=== PATIENT | female | born 1950 | race Caucasian/White ===

== ENCOUNTER 2022-11-18 00:58 | Inpatient (IN) | payer MEDICARE, OTHER ==
[2022-11-18] MEDS ORDERED: LORazepam 0.5 MG TAB PO STA (01:39)
[2022-11-18] MEDS ORDERED: HYDROmorphone 1 MG/ML 1 ML SYRINGE IM STA (01:39)
[2022-11-18] MEDS ORDERED: NALOXONE 0.4 MG/ML 1 ML VIAL IV PRN (03:41)
[2022-11-18 04:30] LABS: Basophils % (A) 0 %; Eosinophils # (A) 0.1 k/uL (0-0.7); Eosinophils % (A) 1 %; HCT 38.6 % (34.0-46.0); HGB 12.7 gm/dL (11.4-16.0); Lymphocytes # (A) 0.6 k/uL (1.0-4.8); Lymphocytes % (A) 7 %; MCH 31.2 pg (25.0-35.0); MCHC 32.8 g/dL (31.0-37.0); Mean Platelet Volume 7.5; Monocytes # (A) 0.4 k/uL (0-1.0); Monocytes % (A) 4 %; Neutrophils # (A) 7.9 k/uL (1.3-7.7); Neutrophils % (A) 87 %; Platelet Count 184 k/uL (150-450); RBC 4.06 m/uL (3.80-5.40); RDW 14.2 % (11.5-15.5)
[2022-11-18] MEDS: KETOROLAC 15 MG/ML 1 ML VIAL IVP PRN ×2 (04:37→21:34)
--- NOTE | 2022-11-18 04:39 | CT ---
EXAM: CT Head Without Intravenous Contrast CLINICAL HISTORY: ITS.REASON CT Reason: fall TECHNIQUE: Axial computed tomography images of the head/brain without intravenous contrast. CTDI is 45.2 mGy and DLP is 1008 mGy-cm. This CT exam was performed using one or more of the following dose reduction techniques: automated exposure control, adjustment of the mA and/or kV according to patient size, and/or use of iterative reconstruction technique. COMPARISON: No relevant prior studies available. FINDINGS: Brain: No hemorrhage, extra-axial fluid collection, mass effect, or edema. Ventricles: Unremarkable. Bones/joints: Unremarkable. No fracture. Soft tissues: Unremarkable. Sinuses: No acute sinusitis. Mastoid air cells: Unremarkable as visualized. IMPRESSION: 1. No acute intracranial abnormality. EXAM: CT Cervical Spine Without Intravenous Contrast CLINICAL HISTORY: ITS.REASON CT Reason: fall TECHNIQUE: Axial computed tomography images of the cervical spine without intravenous contrast. CTDI is 9.3 mGy and DLP is 260.4 mGy-cm. This CT exam was performed using one or more of the following dose reduction techniques: automated exposure control, adjustment of the mA and/or kV according to patient size, and/or use of iterative reconstruction technique. COMPARISON: No relevant prior studies available. FINDINGS: Vertebrae: No acute fracture. Severe degenerative changes. Anterolisthesis at C2-3. Retrolisthesis at C4-5. Degenerative changes most pronounced at C4-5 where there is severe spinal canal stenosis. Multilevel high-grade foraminal stenosis. Soft tissues: Unremarkable. IMPRESSION: 1. No acute fracture. 2. Severe spinal canal stenosis at C4-5.
--- NOTE | 2022-11-18 04:40 | XR ---
EXAM: XR Chest, 1 View CLINICAL HISTORY: ITS.REASON XR Reason: Fx TECHNIQUE: Frontal view of the chest. COMPARISON: No relevant prior studies available. FINDINGS: Lungs: No consolidation. No overt edema. Pleural space: No pleural effusion. No pneumothorax. Heart: Unremarkable. No cardiomegaly. IMPRESSION: No acute cardiopulmonary abnormality.
[2022-11-18 04:42] LABS: ALT 11 U/L (4-34); AST 24 U/L (14-36); African American GFR (CKD) >90 (>60 ml/min/1.73 sqM); Albumin 3.8 g/dL (3.5-5.0); Alkaline Phosphatase 74 U/L (38-126); Anion Gap 4 mmol/L; Blood Urea Nitrogen 20 mg/dL (7-17); Calcium 8.7 mg/dL (8.4-10.2); Carbon Dioxide 26 mmol/L (22-30); Chloride 106 mmol/L (98-107); Glucose 98 mg/dL (74-99); Non-African American GFR(CKD) >90 (>60 ml/min/1.73 sqM); Partial Thromboplastin Time 24.3 sec (22.0-30.0); Potassium 4.3 mmol/L (3.5-5.1); Prothrombin Time 10.2 sec (9.0-12.0); Sodium 136 mmol/L (137-145); Total Bilirubin 0.4 mg/dL (0.2-1.3); Total Protein 6.3 g/dL (6.3-8.2)
--- NOTE | 2022-11-18 04:42 | XR ---
EXAM: XR Left Hip With Pelvis When Performed, 2 or 3 Views CLINICAL HISTORY: ITS.REASON XR Reason: fall TECHNIQUE: Two or three views of the left hip with pelvis when performed. COMPARISON: No relevant prior studies available. FINDINGS: Bones/joints: Subcapital femoral neck fracture on the left. IMPRESSION: Subcapital femoral neck fracture on the left.
--- NOTE | 2022-11-18 04:59 | ED ---
Lower Extremity Injury HPI - General Chief Complaint: Fall Stated Complaint: Fall Time Seen by Provider: 11/18/22 01:33 Source: patient, EMS Mode of arrival: EMS Limitations: no limitations - History of Present Illness Initial Comments: Patient is a 72-year-old female presenting with chief complaint of left hip pain. Patient had a fall from standing at home today, states she was trying to move a boot on the floor and lost her balance. She fell onto her left hip. She denies any head injury, loss of consciousness, use of blood thinners. No si gnificant past medical history. No headache, vision or hearing changes, numbness, tingling, weakness, nausea, vomiting, dizziness, chest pain, difficulty breathing. - Related Data Home Medications Medication Instructions Recorded Confirmed No Known Home Medications 12/13/15 12/13/15 Previous Rx's Medication Instructions Recorded Ibuprofen [Motrin] 600 mg PO Q6HR PRN #30 tab 12/13/15 Allergies Allergy/AdvReac Type Severity Reaction Status Date / Time No Known Allergies Allergy Verified 11/18/22 01:04 Review of Systems ROS Statement: Those systems with pertinent positive or pertinent negative responses have been documented in the HPI. ROS Other: All systems not noted in ROS Statement are negative. Past Medical History Past Medical History: No Reported History History of Any Multi-Drug Resistant Organisms: None Reported Past Surgical History: No Surgical Hx Reported Past Psychological History: No Psychological Hx Reported Smoking Status: Current every day smoker Past Alcohol Use History: Rare Past Drug Use History: None Reported General Exam Limitations: no limitations General appearance: alert, in no apparent distress Head exam: Present: atraumatic, normocephalic, normal inspection Eye exam: Present: normal appearance, PERRL, EOMI. Absent: scleral icterus, periorbital swelling, periorbital tenderness Neck exam: Present: normal inspection, full ROM Respiratory exam: Present: normal lung sounds bilaterally. Absent: respiratory distress, wheezes, rales, rhonchi, stridor Cardiovascular Exam: Present: regular rate, normal rhythm, normal heart sounds. Absent: systolic murmur, diastolic murmur, rubs, gallop, clicks Extremities exam: Present: normal capillary refill Left Hip exam: Present: tenderness, external rotation, shortening. Absent: normal i nspection, full ROM Neurological exam: Present: alert, oriented X3, CN II-XII intact Psychiatric exam: Present: normal affect, normal mood Skin exam: Present: warm, dry, intact, normal color. Absent: rash Course Vital Signs 11/18/22 11/18/22 00:59 04:39 Temperature 97.3 F L Pulse Rate 67 65 Respiratory 18 16 Rate Blood Pressure 177/92 120/76 O2 Sat by Pulse 94 L 92 L Oximetry Medical Decision Making - Medical Decision Making Was pt. sent in by a medical professional or institution (, PA, GRIDCAP MACHINE OPERATOR, urgent care, hospital, or correction...) When possible be specific @ -No Did you speak to anyone other than the patient for history (EMS, parent, family, police, friend...)? What history was obtained from this source @ -No Did you review nursing and triage notes (agree or disagree)? Why? @ -I reviewed and agree with nursing and triage notes Were old charts reviewed (outside hosp., previous admission, EMS record, old EKG, old radiological studies, urgent care reports/EKG's, correction records)? Report findings @ -No old charts were reviewed Differential Diagnosis (chest pain, altered mental status, abdominal pain women, abdominal pain men, vaginal bleeding, weakness, fever, dyspnea, syncope, headache, dizziness, GI bleed, back pain, seizure, CVA, palpatations, mental health, musculoskeletal)? @ -Differential Musculoskeletal Muscular strain, contusion, ligament sprain, fracture, arthritis, septic arthrit is, bursitis, cellulitis, muscle spasm, nerve compression, DVT, arterial occlusion, herpes zoster, electrolyte abnormality, tumor.... This is not meant to be in all inclusive list EKG interpreted by me (3pts min.). @ -As above X-rays interpreted by me (1pt min.). @ -X-ray shows subcapital femoral neck fracture on the left. Chest x-ray shows no acute process CT interpreted by me (1pt min.). @ -CT shows no acute intracranial process or cervical spine fracture U/S interpreted by me (1pt. min.). @ -None done What testing was considered but not performed or refused? (CT, X-rays, U/S, labs)? Why? @ -None What meds were considered but not given or refused? Why? @ -None Did you discuss the management of the patient with other professionals (professionals i.e. , SUSAN, GRIDCAP MACHINE OPERATOR, lab, RT, psych nurse, clinical social work therapist, cement rubber, teacher, armed custom protection officer, lead case manager)? Give summary @ -I spoke with Dr. Houser orthopedist front of house manager who accepted admission of this patient Was smoking cessation discussed for >3mins.? @ -No Was critical care preformed (if so, how long)? @ -No Were there social determinants of health that impacted care today? How? (Home lessness, low income, unemployed, alcoholism, drug addiction, transportation, low edu. Level, literacy, decrease access to med. care, senior living, rehab)? @ -No Was there de-escalation of care discussed even if they declined (Discuss DNR or withdrawal of care, Hospice)? DNR status @ -No What co-morbidities impacted this encounter? (DM, HTN, Smoking, COPD, CAD, Cancer, CVA, ARF, Chemo, Hep., AIDS, mental health diagnosis, sleep apnea, morbid obesity)? @ -None Was patient admitted / discharged? Hospital course, mention meds given and route, prescriptions, significant lab abnormalities, going to OR and other pertinent info. @ -Admitted. 72-year-old female presenting for evaluation after a fall at home from standing. She is complaining of left hip pain. Negative CT of the brain and cervical spine. X-ray shows subcapital femoral neck fracture. I spoke with Dr. Houser who accepted admission. Preop lab work was ordered an EKG was ordered. Patient was placed nothing by mouth and consult was placed to medicine for surgical clearance. Patient is agreeable with this plan. I discussed this case with my attending Dr. Su Undiagnosed new problem with uncertain prognosis? @ -No Drug Therapy requiring intensive monitoring for toxicity (Heparin, Nitro, Insulin, Cardizem)? @ -No Were any procedures done? @ -No Diagnosis/symptom? @ -Hip fracture Acute, or Chronic, or Acute on Chronic? @ -Acute Uncomplicated (without systemic symptoms) or Complicated (systemic symptoms)? @ -Complicated Side effects of treatment? @ -No Exacerbation, Progression, or Severe Exacerbation? @ -No Poses a threat to life or bodily function? How? (Chest pain, USA, AR, pneumonia, PE, COPD, DKA, ARF, appy, cholecystitis, CVA, Diverticulitis, Homicidal, Suici viviane, threat to staff... and all critical care pts) @ -No - Lab Data Result diagrams: 11/18/22 04:12 11/18/22 04:12 Disposition Clinical Impression: Hip fracture Disposition: ADMITTED IP TO THIS HOSP Condition: Serious
[2022-11-18] MEDS: SODIUM CHLORIDE 0.9% 1,000 ML IV SCH ×2 (05:10→21:34)
[2022-11-18] MEDS: HYDROmorphone 1 MG/ML 1 ML SYRINGE IVP PRN ×2 (07:59→17:25)
--- NOTE | 2022-11-18 08:12 | P.HPOR ---
History of Present Illness H&P Date: 11/18/22 Chief Complaint: Left hip pain Patient is a very pleasant 72-year-old female who is seen and examined at bedside in the emergency room. Apparently patient had a fall overnight last night when she is trying to move some boots off the ground and she tripped and fell onto her left side. She had sudden acute pain at her left hip was unable to get up. She denies loss consciousness or headache. Denies any chest pain or shortness breath. Denies any problems the left hip in the past. She normally is a home ambulator without assistance but occasionally uses a cane. She did not have any other injuries that she knows of. She does not have any problems of her lower extremities in the past. She does not drive. She was at home with her grandsons and her son-in-law She says that she has not been to the doctor in decades. She does not have a regular primary care physician. She does not take any medicines at home. Review of Systems As stated per HPI. Denies any headaches loss of consciousness. Denies chest pain shortness breath. She says she has occasional asthma be as she is a chronic smoker. She denies any abdominal pain nausea or vomiting or diarrhea her changes in bowel bladder function. Denies any numbness or leg. She has significant pain at her leg whenever she tried to move. Past Medical History Past Medical History: No Reported History, Asthma Additional Past Medical History / Comment(s): She says she is a chronic smoker and has asthma due to this. She occasionally uses a cane for ambulation History of Any Multi-Drug Resistant Organisms: None Reported Past Surgical History: No Surgical Hx Reported Past Psychological History: No Psychological Hx Reported Smoking Status: Current every day smoker Past Alcohol Use History: Rare Past Drug Use History: None Reported Medications and Allergies Home Medications Medication Instructions Recorded Confirmed Type Ibuprofen [Motrin] 600 mg PO Q6HR PRN #30 tab 12/13/15 Rx No Known Home Medications 12/13/15 12/13/15 History Allergies Allergy/AdvReac Type Severity Reaction Status Date / Time No Known Allergies Allergy Verified 11/18/22 01:04 Physical Examination Osteopathic Statement: *. No significant issues noted on an osteopathic structural exam other than those noted in the History and Physical/Consult. - Hip left Gait: other (The patient is laying in bed unable to get up has pain with any motion of the left leg. Her leg is shortened dextrorotated on left side. Size nontender. She has pain with motion and palpation around her left hip. She has dorsal flexion plantarflexion and EHL intact ankle foot and toes.) Tenderness with palpation: lateral Pain with motion: external rotation and hip flexion (She has pain with any motion at the left hip. Her abdomen soft nontender. Chest is good excursion deep inspiration and expiration. Next nontender to palpation has good range of motion. Upper extremities have full active and passive range of motion) Results - Labs Labs: Abnormal Lab Results - Last 24 Hours (Table) 11/18/22 11/18/22 Range/Units 04:12 04:12 Neutrophils # 7.9 H (1.3-7.7) k/uL Lymphocytes # 0.6 L (1.0-4.8) k/uL Sodium 136 L (137-145) mmol/L BUN 20 H (7-17) mg/dL Creatinine 0.51 L (0.52-1.04) mg/dL H & H 11/18/22 Range/Units 04:12 Hgb 12.7 (11.4-16.0) gm/dL Hct 38.6 (34.0-46.0) % Coagulation 11/18/22 Range/Units 04:12 INR 1.0 (<1.2) Result Diagrams: 11/18/22 04:12 11/18/22 04:12 - Diagnostic results Hip x-ray: report reviewed, image reviewed (X-rays the pelvis and left hip show a left femoral neck fracture with displacement.) CT scan - cervical: other (Image of the head does not show any evidence of acute process) Assessment and Plan Assessment: Acute traumatic left hip femoral neck fracture with displacement due to a fall Inability to ambulate due to left hip fracture Chronic smoker Plan: Acute traumatic left hip femoral neck fracture with displacement due to a fall Inability to ambulate due to left hip fracture Chronic smoker The patient has a new fracture at her left hip due to her fall overnight last night. I discussed the injury with her and how it relates with her overall ambulatory status and independence. She understands that this is very serious fracture and knee severely inhibit her ability to be independent and ambulate in the future. We feel that the best chance she has of regaining her motion mobility and independence is to proceed with surgical intervention for left hip hemiarthroplasty. Surgical intervention with this would allow her to start to mobilize and ambulate as soon as possible. We discussed range of options ranging from conservative to surgical and the patient was interested in proceeding with surgery. I discussed the risk of occasions alternatives benefits of surgery including but not limited to the risk of bleeding risk infection was used for further surgery risk decreased loss of motion loss function malunion nonunion hardware failure dislocation as well as the fact that surgery may not alleviate her symptoms was explained. Patient elected to proceed with surgical intervention will sign informed consent. We will have the patient nothing by mouth and plan for possible surgical intervention later this afternoon if she is able to be cleared with medicine. Patient does not have a primary care physician that she is seen in the past several decades and we will get her establish that she could have potential clearance. We'll do appropriate preoperative workup and lab work and imaging. Thus far the patient's imaging of her head and chest have been unremarkable. She will remain nothing by mouth and lab for possible surgery later today for left hip hemiarthroplasty
[2022-11-18 12:35] LABS: Glucose,Whole Blood 91 mg/dL (70-110)
--- NOTE | 2022-11-18 15:52 | HP ---
HISTORY AND PHYSICAL CHIEF COMPLAINT: Fall with pain in left hip. HISTORY OF PRESENT ILLNESS: First known admission for this 72-year-old white female. She apparently got up in the middle of the night, tripped and landed on her left hip. She has a left hip fracture. REVIEW OF SYSTEMS: She denies any confusion, seizures, blackouts, focal neurologic deficits, problems with vision or hearing, chest pain, shortness of breath, cough, heart disease, abdominal pain, nausea, vomiting, diarrhea, melena, hematochezia, jaundice, hepatitis, hematuria, frequency, urgency, nocturia, incontinence, renal failure, diabetes, etc. Past medical history, family history, personal and social histories are all otherwise unremarkable and noncontributory. MEDICATIONS: She is not on any medications. ALLERGIES: She is not allergic to any. PHYSICAL EXAMINATION: VITAL SIGNS: Blood pressure 174/104. Pulse is 81, respirations of 22, and she is afebrile. GENERAL: She appeared to be slender, awake and alert and in no acute distress. SKIN: Color was normal. Skin was dry. HEAD, EARS, EYES, NOSE, MOUTH AND THROAT: Normal. NECK: Veins are not distended. CHEST: Clear. CARDIAC: Demonstrates sinus rhythm. ABDOMEN: Soft and nontender without any visceromegaly or masses. Bowel sounds are present. EXTREMITIES: Normal except for external rotation of the left hip. NEUROLOGIC: She is intact. IMPRESSION: She is admitted to the hospital with diagnosis of fracture of the left hip. PLAN: 1. Bedrest. 2. Analgesics. 3. IV fluids. 4. Orthopedic evaluation and ORIF. DANIELA / IJN: [id number] /
[2022-11-18] MEDS: amLODIPine 5 MG TAB PO SCH (17:27)
[2022-11-19] MEDS: HYDROmorphone 1 MG/ML 1 ML SYRINGE IVP PRN ×3 (00:07→13:55)
[2022-11-19] MEDS: KETOROLAC 15 MG/ML 1 ML VIAL IVP PRN ×2 (05:58→12:21)
[2022-11-19] MEDS: amLODIPine 5 MG TAB PO SCH (08:16)
--- NOTE | 2022-11-19 08:39 | P.PN ---
Progress Note - Text Progress Note Date: 11/19/22 Orthopedics: History of present illness: Patient is a very pleasant 72-year-old female who is seen and examined the bedside with her family present. Patient is known to have sustained a fall resulting in a acute traumatic left hip femoral neck fracture with displacement. She has been unable to ambulate since that time. She was cleared for surgical intervention yesterday but was unable to proceed for due to scheduling. Patient is currently nothing by mouth in anticipation for surgical intervention today. She was cleared for surgery by medicine. She is resting comfortably. She states her pain is controlled while at rest. She will continue be seen and examined by medicine. Physical exam: Patient is awake, alert, and oriented 3 Vital signs stable Good chest excursion with deep inspiration and expiration Left lower extremity is shortened and externally rotated Pain with palpation of the left hip Significant pain with internal and external rotation of the left hip Neurovascularly intact bilateral lower extremities Dorsiflexion, plantarflexion, and extensor hallucis longus positive sustained left lower extremity Calves are soft and supple; No signs or symptoms of DVT; No calf pain Assessment: Acute traumatic left hip femoral neck fracture with displacement Status post fall Inability ambulate due to left hip fracture Chronic smoker Plan: 1. Patient is known to have sustained an acute traumatic left hip femoral neck fracture with displacement status post fall. She is currently scheduled for a left hip hemiarthroplasty to be performed today, 11/19/2022. She has been cleared by medicine. She's currently nothing by mouth status. We're currently planning to proceed forward with surgical intervention later today. Patient will remain on bed rest with Merritt catheter intact. Patient states she is ready proceed forward with surgical intervention and is looking forward to increasing her mobility and ambulation postoperatively. Patient states she does have multiple family members at home including children and grandchildren. She like to be discharged home. She will ambulate with assistance of a walker.
[2022-11-19] MEDS ORDERED: TRANEXAMIC ACID 1,000 MG in SODIUM CHLORIDE 0.9% 100 ML IVPB ONE ×4 (09:55)
[2022-11-19] MEDS ORDERED: LACTATED RINGERS 1,000 ML IV ONE ×2 (18:11→20:30)
[2022-11-19] MEDS ORDERED: HYDROmorphone 0.5 MG/0.5 ML SYRINGE IVP ONE (18:44)
[2022-11-19] MEDS ORDERED: ePHEDrine 50 MG/ML 1 ML VIAL ONE (19:09)
[2022-11-19] MEDS ORDERED: HYDROmorphone (PF) 1 MG/ML ONE (19:09)
[2022-11-19] MEDS ORDERED: MIDAZOLAM 2 MG/2 ML VIAL ONE (19:09)
[2022-11-19] MEDS ORDERED: LIDOCAINE 2% INJ 20 MG/ML (2 ML VIAL) ONE (19:09)
[2022-11-19] MEDS ORDERED: TRANEXAMIC 1,000 MG/100ML-NACL PREMIX BAG ONE (19:09)
[2022-11-19] MEDS ORDERED: fentaNYL (PF) 50 MCG/ML 2 ML AMP ONE (19:09)
[2022-11-19] MEDS ORDERED: ROCURONIUM 10 MG/ML (5 ML VIAL) IV ONE (19:09)
[2022-11-19] MEDS ORDERED: SUCCINYLCHOLINE CHLORIDE 200 MG/10 ML VIAL IV ONE (19:09)
[2022-11-19] MEDS ORDERED: PROPOFOL 10 MG/ML 20 ML VIAL IV ONE (19:09)
[2022-11-19] MEDS ORDERED: SODIUM CHLORIDE 0.9% 50 ML with ceFAZolin 2,000 MG IV ONE ×2 (19:30)
[2022-11-19] MEDS: ROPIVACAINE/EPI/CLONIDINE/KET 50 ML SYRINGE MISCELLANE PRN ×2 (19:59→20:32)
--- NOTE | 2022-11-19 21:06 | FL ---
Intraoperative/procedural fluoroscopic services were provided. Total fluoroscopy time is 20 seconds w ith a total of 5 submitted images to PACS. Please see the operative/procedural note for further detai ls. DAP: 0.8182 Gycm2
--- NOTE | 2022-11-19 21:09 | P.OP ---
Date of Procedure: 11/19/22 Preoperative Diagnosis: 1. Left displaced subcapital femoral neck fracture 2. Severe osteopenia 3. Current every day cigarette smoker Postoperative Diagnosis: Same Procedure(s) Performed: Left direct anterior hip hemiarthroplasty Implants: Ovid accolade C size #3 standard offset femoral stem, bipolar 41 mm outer diameter, 26 mm inner diameter -3 mm neck Anesthesia: GETA, regional Surgeon: Blaine Rocha Day Habilitation Supervisor #1: Evelia Davila Estimated Blood Loss (ml): 100 IV fluids (ml): 1,100 Pathology: other (The pathology) Condition: stable Disposition: PACU Indications for Procedure: The patient is a very pleasant 71-year-old female sustained a ground level fall resulting in a left displaced subcapital femoral neck fracture. The patient was initially admitted to my partner who requested I assisted in managing her injury as I was in the operating room today. I doubt the patient to discuss her injury and treatment options. Given her age, frail medical condition, and history of cigarette smoking the recommendation was hemiarthroplasty. The patient understands that she is at a risk particularly for infection and delayed wound healing given her cigarette smoking. I strongly encouraged her to quit smoking. I met with the patient and their family to discuss treatment options. The patient has a displaced femoral neck fracture and based on their age, activity level, and medical comorbidities I recommended a hip hemiarthroplasty to facilitate early mobilization. My recommendation was to perform the hemiarthroplasty through a direct anterior approach to help lower the risk of dislocation and improve postoperative recovery and use cemented fixation of the femoral component to reduce the risk of fracture and postoperative thigh pain. We discussed the potential risks and complications of a hemiarthroplasty for displaced femoral neck fracture at length. Risks discussed include are certainly not limited to risks from anesthesia, superficial infection requiring local wound care and possibly surgical debridement, deep periprosthetic joint infection and the treatment for this, damage to local blood vessels or nerves particularly the lateral femoral cutaneous nerve, intraoperative fracture, postoperative periprosthetic fracture, leg length discrepancy, hip dislocation, aseptic loosening, groin pain, thigh pain, progression of arthritis requiring conversion to total hip arthroplasty, complications related to cementing the component, an inability to regain preinjury level of function, DVT, PE, acute coronary event, stroke, pneumonia, urinary tract infection, failure to thrive, and possibly . The patient and their family understand that while these are the most common complications other less common complications are possible. They provided their verbal and written consent to go forward with surgery. Operative Findings: Severe osteopenia Description of Procedure: The patient was identified in the preoperative holding area and the correct hip was marked with my initials. I reviewed the procedure and consent with the patient. All of their questions were answered. The patient was then brought ba into the operating room by anesthesia. While on the [facility] anesthesia was administered by the anesthesia team. Preoperative antibiotics and tranexamic acid were also given. After the patient was under anesthesia I examined their ankles to determine their preoperative leg length discrepancy. The skin over the anterior aspect of the hip was shaved to remove hair over the site of planned incision. Both feet and ankles were padded with webril and boots for the [place] [employer] were applied. The patient was then carefully transferred onto the [place] [employer] table. A perineal post was immediately placed. The arms were placed on arm holders and were well-padded. Both boots were secured to the spars on the [place] [employer] table. The patient was positioned so that the pelvis was centered over the post. Nonsterile drapes were applied. A timeout was performed identifying the correct patient, operative extremity, and procedure. At this point fluoroscopy was brought in to take preoperative images of the pelvis and operative hip. A metallic bar was used to create a bi-ischial line for use as a reference to leg length adjustments during the procedure. Global offset was also measured on both the operative and nonoperative leg. Fluoroscopy was then brought out and a pre-scrub using a chlorhexidine scrub brush was performed. The operative limb was then prepped and draped in the standard sterile fashion. An anterior longitudinal incision was made lateral and distal to the ASIS. The skin and subcutaneous tissues were incised sharply. The underlying tensor fascia was identified and incised in its midportion. The fascia was dissected free from the underlying muscle and the muscle belly was retracted. A blunt tipped cobra retractor was placed over the superior neck under the muscle fibers of the gluteus minimus. The deep enveloping fascia of the tensor was incised. The anterior leash of vessels were then identified and cauterized. The fascia between the rectus and the capsule was then incised and the pre-capsular fat was excised. A second Cobra was placed inferior to the neck. The interval between the rectus and iliocapsularis and the hip capsule was developed and a retractor was placed carefully over the anterior rim of the acetabulum. A T-shaped anterior capsulotomy was performed. A hemarthrosis consistent with a femoral neck fracture was identified. The superior capsular leaflet was left in place in the inferior capsular flap was excised. The Cobra retractors were placed intracapsularly. A displaced femoral neck fracture was then identified. We then made a femoral neck osteotomy according to preoperative and intraoperative templating and confirmed the level of the osteotomy using fluoroscopic imaging. The femoral head was removed, passed off to the back table, and sized. The superior capsular flap was excised. On inspection of the acetabulum there were minimal degenerative changes with intact cartilage. Attention was then turned to the femur. The remnant dorsal lateral capsule was excised. The short external rotators were visible and protected. A bone hook was used to confirm appropriate translation of the trochanter away from the acetabulum. The leg was then extended and adducted and the bone hook was used to elevate the femur for broaching. A box osteotome and blunt tipped canal sound was then utilized to gain access to the femoral canal. We then sequentially broached the femur in appropriate anteversion until torsional stability was achieved and the implant was felt to have reached the appropriate size to allow trialing. The neck cut was brought flush to the trial broach with a calcar planar. A trial neck and head were then placed onto the broach and the hip was atraumatically reduced under direct visualization. External rotation to 90 was performed to assess stability. Fluoroscopy was brought in. An AP and lateral fluoroscopic image of the proximal femur was obtained to assess position and fill of the trial broach. An AP of the pelvis was then obtained and matched to the preoperative image taken. A bi-ischial bar was then placed and measurements were taken to assess changes in length and offset. The hip was then carefully dislocated, the proximal femur was exposed, and the trial implants were removed. The proximal femur was then prepared for cementing. The canal was thoroughly irrigated with pulsatile lavage to remove blood and marrow contents. A cement restrictor was placed to a depth just distal to the tip of the final implant. Epinephrine-soaked gauze was then packed into the proximal femur. 2 bags of cement with antibiotics were then mixed using a centrifuge and placed into a cement gun. Anesthesia was notified that cementing was about to commence to make sure the patient was appropriately ventilated and hydrated. Once the cement had reached appropriate consistency, the cement gun was used to fill the canal in a retrograde fashion starting at the restrictor. Cement was then pressurized into the canal with a blue tipped alarm installer. The stem was then carefully introduced into the cement taking care to guide the implant into appropriate version. The stem was held in position until the cement had fully set. All extra cement was removed while the cement was hardening. The trunnion was cleansed and the final head was tapped into place to engage the Kenyon taper. The acetabulum was irrigated and visualized to be free of debris. The hip was carefully reduced. Stability was checked clinically with external rotation to 90 and there was no evidence of instability. Final fluoroscopic images were taken. The wound was then thoroughly irrigated with Irrisept. 3 L of sterile saline was irrigated through the wound using pulsatile lavage. Local anesthetic cocktail was injected into the soft tissues around the surgical field. A deep drain was placed. The wound was then closed in layers. A sterile dressing was placed over the surgical incision and drain site. The drapes were taken down and the patient was carefully transferred off of the [employer] [place] [employer] table. Following removal of the boots the leg lengths felt acceptable. The patient was then taken to recovery room having tolerated the procedure well. Evelia Davila PA-C was required as a skilled human resources executive assistant for patient positioning, surgical exposure, retraction, placement of implants, and closure of the surgical wound. PLAN: The patient can weight-bear as tolerated on the operative extremity. 2 doses of postoperative antibiotics. DVT prophylaxis with aspirin 81 mg twice a day based on preoperative risk stratification. Physical therapy for gait training. Discontinue drain postoperative day #1 if output is less than 100 mL per shift.
[2022-11-19] MEDS ORDERED: hydrOXYzine pamoate 25 MG CAP PO PRN (21:15)
[2022-11-19] MEDS ORDERED: HYDROmorphone 0.5 MG/0.5 ML SYRINGE IVP PRN ×3 (21:15)
[2022-11-19] MEDS ORDERED: ONDANSETRON 4 MG/2 ML VIAL IVP ONE (21:35)
[2022-11-19] MEDS: SODIUM CHLORIDE 0.9% 1,000 ML IV SCH (21:38)
[2022-11-19] MEDS ORDERED: ONDANSETRON 4 MG/2 ML VIAL IVP PRN (22:35)
--- NOTE | 2022-11-20 04:48 | P.PN ---
Subjective Progress Note Date: 11/19/[address] Arthur and her primary care provider 11/19/2022 Patient is seen and evaluated in follow-up this morning who recently had a fall resulting in a left hip femoral neck fracture with displacement and has been admitted to surgery services with medicine on consult. Plan is for surgery so metime today and patient is continued to be nothing by mouth and will continue with pain management per orthopedics. Patient is afebrile with no reports of chest pain or shortness of breath. Patient is reporting hip pain although currently managed and tolerable when not moving. Recommend to continue monitoring blood pressure and postoperatively to monitor for any hypotension. Will will await surgical report along with PT evaluation. Review of systems: Constitutional: No reports of fatigue, fever, or chills Cardiovascular: No reports of chest pain or palpitations Respiratory: No reports of shortness of breath or cough GI: no reports of nausea, no reports of vomiting, no diarrhea : No reports of dysuria or retention Neurovascular: reports of generalized weakness and some left hip pain All medications have been reviewed PHYSICAL EXAMINATION: GENERAL: The patient is alert and oriented x3, thin built, elderly appearing female HEENT: Pupils are round and equally reacting to light. EOMI. no scleral icterus. No conjunctival pallor. Normocephalic, atraumatic. No pharyngeal erythema. No thyromegaly. CARDIOVASCULAR: S1 and S2 muffled PULMONARY: diminished breath sounds bilaterally with no wheezing or rhonchi noted. ABDOMEN: soft. Nontender on exam. non-distended, normoactive bowel sounds. No palpable organomegaly. MUSCULOSKELETAL: No joint swelling or deformity. EXTREMITIES: No cyanosis, clubbing, or pedal edema. left lower extremity shortened and externally rotated NEUROLOGICAL: Gross neurological examination did not reveal any focal deficits. Diffuse weakness SKIN: No rashes. Assessment: Fall with left hip femoral neck fracture with displacement History of asthma, not an exacerbation Hypothyroidism history Continued ongoing nicotine dependence Hypertension history GI prophylaxis DVT prophylaxis Full code Plan: Recommend to continue with current medications and management per orthopedic services. patient scheduled to undergo arthroplasty with Dr. Rocha today and currently nothing by mouth. Patient to continue with indwelling Merritt catheter for now and would recommend removing postoperatively We'll follow up on these labs in the a.m. and continue to monitor blood pressure closely. Will monitor for postoperative hypotension and adjust medications accordingly Patient is low to moderate risk for surgical intervention and risks versus benefits were explained and patient is agreeable. Would recommend incentive spirometer and encouraged to use at least 10 times every hour while awake Will await surgical report along with PT/OT therapy evaluation We will continue to follow with orthopedics during hospitalization. Thank you kindly for this consultation. The impression and plan of care has been dictated by Kristin Cobos, nurse practitioner as directed. Dr. Alesha MD I have performed a history and examination and MDM of this patient, discussed the same with the dictator, and agree with the dictator's assessment and plan as written ,documented as a scribe. Based on total visit time, I have performed more than 50% of the visit. Any additional findings or plans will be noted. Objective - Vital Signs Vital signs: Vital Signs Temp 98.4 F 11/19/22 07:11 Pulse 69 11/19/22 07:11 Resp 15 11/19/22 07:11 BP 138/80 11/19/22 07:11 Pulse Ox 94 L 11/19/22 07:11 FiO2 Intake & Output 11/18/22 11/19/22 11/19/22 18:59 06:59 18:59 Output Total 1300 Balance -1300 Weight 56.699 kg Output: Urine 1300 Other: Voiding Method Indwelling Catheter Indwelling Catheter - Labs CBC & Chem 7: 11/18/22 04:12 11/18/22 04:12
[2022-11-20 06:55] LABS: Basophils % (A) 0 %; Eosinophils % (A) 1 %; HCT 32.2 % (34.0-46.0); HGB 10.6 gm/dL (11.4-16.0); Lymphocytes # (A) 0.5 k/uL (1.0-4.8); Lymphocytes % (A) 7 %; MCH 31.6 pg (25.0-35.0); MCHC 32.8 g/dL (31.0-37.0); MCV 96.3 fL (80.0-100.0); Mean Platelet Volume 7.6; Monocytes # (A) 0.5 k/uL (0-1.0); Monocytes % (A) 7 %; Neutrophils # (A) 6.3 k/uL (1.3-7.7); Neutrophils % (A) 85 %; Platelet Count 147 k/uL (150-450); RBC 3.35 m/uL (3.80-5.40); WBC 7.4 k/uL (3.8-10.6)
[2022-11-20 07:16] LABS: African American GFR (CKD) >90 (>60 ml/min/1.73 sqM); Anion Gap 4 mmol/L; Blood Urea Nitrogen 10 mg/dL (7-17); Calcium 7.5 mg/dL (8.4-10.2); Carbon Dioxide 28 mmol/L (22-30); Chloride 103 mmol/L (98-107); Glucose 93 mg/dL (74-99); Magnesium 1.7 mg/dL (1.6-2.3); Non-African American GFR(CKD) >90 (>60 ml/min/1.73 sqM); Potassium 3.8 mmol/L (3.5-5.1); Sodium 135 mmol/L (137-145)
[2022-11-20] MEDS: ASPIRIN 81 MG PO SCH ×2 (08:21→19:55)
[2022-11-20] MEDS: amLODIPine 5 MG TAB PO SCH (08:21)
[2022-11-20] MEDS ORDERED: Magnesium Replacement Protocol 1 EACH MISC MISCELLANE PRN (08:56)
[2022-11-20] MEDS ORDERED: MAGNESIUM SULFATE-D5W PMX 1 GM in DEXTROSE/WATER 1 100ML.BAG IVPB ONE (10:00)
--- NOTE | 2022-11-20 10:34 | P.PN ---
Subjective Patient is doing well this morning. She has some pain in her hip is otherwise comfortable. She denies chest pain or shortness of breath. Objective - Vital Signs Vital signs: Vital Signs Temp 97.7 F 11/20/22 07:43 Pulse 69 11/20/22 07:43 Resp 18 11/20/22 07:43 BP 97/63 11/20/22 07:43 Pulse Ox 94 L 11/20/22 07:43 FiO2 Intake & Output 11/19/22 11/20/22 11/20/22 18:59 06:59 18:59 Intake Total 450 1670 Output Total 600 490 20 Balance -150 1180 -20 Intake: IV 1550 Intake, IV Titration 450 Amount Sodium Chloride 0.9% 1, 450 000 ml @ 50 mls/hr IV . Q20H [facility] Rx#:[id number] Oral 120 Output: Drainage 40 20 Left Hip 40 20 Urine 600 350 Estimated Blood Loss 100 Other: Voiding Method Indwelling Catheter - Exam Patient is laying comfortably in bed. She is in no apparent distress and is able to answer questions. On inspection of the left hip there is a clean surgical dressing in place. Her drain was removed without difficulty. Her thigh is soft. She is able to actively fire her femoral nerve. Distally motor and sensory function are intact in the ankle. - Labs CBC & Chem 7: 11/20/22 05:54 11/20/22 05:54 Labs: Abnormal Lab Results - Last 24 Hours (Table) 11/20/22 11/20/22 Range/Units 05:54 05:54 RBC 3.35 L (3.80-5.40) m/uL Hgb 10.6 L (11.4-16.0) gm/dL Hct 32.2 L (34.0-46.0) % Plt Count 147 L (150-450) k/uL Lymphocytes # 0.5 L (1.0-4.8) k/uL Sodium 135 L (137-145) mmol/L Creatinine 0.44 L (0.52-1.04) mg/dL Calcium 7.5 L (8.4-10.2) mg/dL Assessment and Plan Assessment: Postoperative day #1 status post left direct anterior hip daniel arthroplasty for displaced femoral neck fracture Plan: 1. Weight-bear as tolerated left lower extremity, up with assistance and a walker 2. 2 doses postoperative antibiotics 3. DVT prophylaxis with aspirin 81 mg twice a day 4. Internal medicine for perioperative medical management 5. Physical therapy 6. Dispo: The patient will likely need discharge to rehab or fdc facility. The patient was apprehensive about this this morning, but said she would consider.
[2022-11-20] MEDS ORDERED: ALBUTEROL HFA INHALER INHALATION PRN (12:57)
--- NOTE | 2022-11-20 16:04 | P.PN ---
Subjective Progress Note Date: 11/20/[address] Grace and her primary care provider 11/19/2022 Patient is seen and evaluated in follow-up this morning who recently had a fall resulting in a left hip femoral neck fracture with displacement and has been admitted to surgery services with medicine on consult. Plan is for surgery sometime today and patient is continued to be nothing by mouth and will continue with pain management per orthopedics. Patient is afebrile with no reports of chest pain or shortness of breath. Lynn ent is reporting hip pain although currently managed and tolerable when not moving. Recommend to continue monitoring blood pressure and postoperatively to monitor for any hypotension. Will will await surgical report along with PT evaluation. 11/20/2022 Patient is evaluated sitting up in the chair. Found to be 83% on room air and has continued to require oxygen. No reports of COPD but noted that patient has been a 1/2 pack per day or more smoker for greater than 50 years. Likely has some underlying chronic respiratory failure and COPD does have history of asthma. Patient will be started on inhalers and likely will require oxygen on discharge. Patient recommended to see machine shorthand teacher on discharge for full pulmonary function testing. Counseled extensively on smoking cessation. Reports minimal post surgical pain. Review of systems: Constitutional: No reports of fatigue, fever, or chills Cardiovascular: No reports of chest pain or palpitations Respiratory: No reports of shortness of breath or cough GI: no reports of nausea, no reports of vomiting, no diarrhea : No reports of dysuria or retention Neurovascular: reports of generalized weakness and some left hip pain All medications have been reviewed PHYSICAL EXAMINATION: GENERAL: The patient is alert and oriented x3, thin built, elderly appearing female HEENT: Pupils are round and equally reacting to light. EOMI. no scleral icterus. No conjunctival pallor. Normocephalic, atraumatic. No pharyngeal erythema. No thyromegaly. CARDIOVASCULAR: S1 and S2 muffled PULMONARY: Coarse scattered rhonchi throughout. ABDOMEN: soft. Nontender on exam. non-distended, normoactive bowel sounds. No palpable organomegaly. MUSCULOSKELETAL: No joint swelling or deformity. EXTREMITIES: No cyanosis, clubbing, or pedal edema. Post surgical left hip with dressing intact. NEUROLOGICAL: Gross neurological examination did not reveal any focal deficits. Diffuse weakness SKIN: No rashes. Assessment: Fall with left hip femoral neck fracture with displacement status post surgical repair. Acute hypoxic respiratory failure patient likely has acute COPD exacerbation with underlying COPD. Patient has been a 1/2 pack per day smoker or more for greater than 50 years. History of asthma, not an exacerbation Hypothyroidism history Continued ongoing nicotine dependence Hypertension history GI prophylaxis DVT prophylaxis Full code Plan: Recommend to continue with current medications and management per orthopedic services. Patient to continue with indwelling Merritt catheter for now and would recommend removing postoperatively Patient has been started on smybicort and albuterol and continues to require oxygen via nasal cannula at 2 to 3 L. 83% on room air. Would recommend incentive spirometer and encouraged to use at least 10 times every hour while awake Will await surgical report along with PT/OT therapy evaluation We will continue to follow with orthopedics during hospitalization. Thank you kindly for this consultation. The impression and plan of care has been dictated by Lisa Be Nurse Practitioner as directed. Dr. Alesha MD I have performed a history and physical examination and medical decision making of this patient, discussed the same with the dictator, and agree with the dictators assessment and plan as written, documented as a scribe. Based on total visit time, I have performed more than 50% of this visit. Objective - Vital Signs Vital signs: Vital Signs Temp 98.4 F 11/20/22 14:00 Pulse 66 11/20/22 14:00 Resp 18 11/20/22 14:00 BP 129/76 11/20/22 14:00 Pulse Ox 95 11/20/22 14:00 FiO2 Intake & Output 11/19/22 11/20/22 11/20/22 18:59 06:59 18:59 Intake Total 450 1670 Output Total 470 957 7634 Balance -150 1180 -1320 Intake: IV 1550 Intake, IV Titration 450 Amount Sodium Chloride 0.9% 1, 450 000 ml @ 50 mls/hr IV . Q20H [facility] Rx#:[id number] Oral 120 Output: Drainage 40 20 Left Hip 40 20 Urine 048 [id number] Uretheral (Merritt) 1300 Estimated Blood Loss 100 Other: Voiding Method Indwelling Catheter # Voids 1 - Labs CBC & Chem 7: 11/20/22 05:54 11/20/22 05:54 Labs: Abnormal Lab Results - Last 24 Hours (Table) 11/20/22 11/20/22 Range/Units 05:54 05:54 RBC 3.35 L (3.80-5.40) m/uL Hgb 10.6 L (11.4-16.0) gm/dL Hct 32.2 L (34.0-46.0) % Plt Count 147 L (150-450) k/uL Lymphocytes # 0.5 L (1.0-4.8) k/uL Sodium 135 L (137-145) mmol/L Creatinine 0.44 L (0.52-1.04) mg/dL Calcium 7.5 L (8.4-10.2) mg/dL Assessment and Plan Time with Patient: Less than 30
[2022-11-20] MEDS: HYDROcodone/APAP 5-325MG 1 EACH TAB PO PRN (16:29)
[2022-11-20] MEDS: ALBUTEROL HFA INHALER INHALATION SCH ×2 (17:03→22:06)
[2022-11-20] MEDS: SODIUM CHLORIDE 0.9% 1,000 ML IV SCH (17:07)
[2022-11-20] MEDS: SENNOSIDES-DOCUSATE SODIUM 1 EACH TAB PO SCH (19:55)
[2022-11-20] MEDS: SYMBICORT 80-4.5 MCG INHALER INHALATION SCH (22:07)
[2022-11-21] MEDS: HYDROcodone/APAP 5-325MG 1 EACH TAB PO PRN ×2 (02:53→08:21)
[2022-11-21 05:28] LABS: African American GFR (CKD) >90 (>60 ml/min/1.73 sqM); Anion Gap 2 mmol/L; Blood Urea Nitrogen 10 mg/dL (7-17); Calcium 7.3 mg/dL (8.4-10.2); Carbon Dioxide 28 mmol/L (22-30); Chloride 105 mmol/L (98-107); Glucose 86 mg/dL (74-99); Non-African American GFR(CKD) >90 (>60 ml/min/1.73 sqM); Potassium 3.4 mmol/L (3.5-5.1); Sodium 135 mmol/L (137-145)
--- NOTE | 2022-11-21 07:22 | XR ---
EXAMINATION TYPE: XR chest 2V DATE OF EXAM: 11/21/2022 6:51 AM COMPARISON: Chest radiographs from 11/18/2022 TECHNIQUE: XR chest 2V Frontal and lateral views of the chest. CLINICAL INDICATION:Female, 72 years old with history of hypoxia; FINDINGS: Lungs/Pleura: There may be a trace left pleural effusion There is flattening of the diaphragm with in creased lucency of the lungs. No evidence of pneumothorax, pleural effusion or focal consolidation. Pulmonary vascularity: Unremarkable. Heart/mediastinum: Cardiomediastinal silhouette is unremarkable. Musculoskeletal: No acute osseous pathology. Other findings: None IMPRESSION: 1. Trace left pleural effusion. 2. Changes.
[2022-11-21] MEDS: SYMBICORT 80-4.5 MCG INHALER INHALATION SCH ×2 (07:47→21:47)
[2022-11-21] MEDS: ALBUTEROL HFA INHALER INHALATION SCH ×4 (07:47→21:47)
[2022-11-21] MEDS: ASPIRIN 81 MG PO SCH ×2 (08:19→20:17)
[2022-11-21] MEDS: FAMOTIDINE 20 MG TAB PO SCH (08:19)
--- NOTE | 2022-11-21 08:49 | P.PN ---
Subjective Progress Note Date: 11/21/22 Today is postoperative day #2. The patient is status post left hip hemiarthroplasty on 11/19/22. Patient states the pain in her hip is well-controlled at this time. Physical therapy is recommending rehab, which patient is agreeable to. No new complaints this morning. Objective - Vital Signs Vital signs: Vital Signs Temp 98.1 F 11/21/22 07:03 Pulse 71 11/21/22 07:03 Resp 18 11/21/22 07:03 BP 116/78 11/21/22 07:03 Pulse Ox 95 11/21/22 07:51 FiO2 Intake & Output 11/20/22 11/21/22 11/21/22 18:59 06:59 18:59 Intake Total 600 Output Total 1320 Balance -720 Intake: Oral 600 Output: Drainage 20 Left Hip 20 Urine 1300 Uretheral (Merritt) 1300 Other: # Voids 1 3 # Bowel Movements 0 - Exam On examination, the patient is sitting up in bed in no apparent distress. She is alert and oriented 3. On inspection of her left hip, there is a clean, dry, intact surgical dressing in place. No bleeding or drainage to the dressing. Motor and sensory function intact LLE. LLE warm and well perfused. Calf nontender. - Labs CBC & Chem 7: 11/20/22 05:54 11/21/22 04:49 Labs: Abnormal Lab Results - Last 24 Hours (Table) 11/20/22 11/21/22 Range/Units 05:54 04:49 Sodium 135 L (137-145) mmol/L Potassium 3.4 L (3.5-5.1) mmol/L Creatinine 0.41 L (0.52-1.04) mg/dL Calcium 7.3 L (8.4-10.2) mg/dL Vitamin D 25-Hydroxy <5.0 L (30.0-100.0) ng/mL Assessment and Plan Assessment: Status-post left hip hemiarthroplasty on 11/19/22. Postoperative day #2. Plan: - Weight bear to tolerance on operative extremity with a walker. Up with assistance. - Physical therapy for gait and balance training. - Keep operative dressing in place. - Pain management as needed. - Aspirin 81 mg twice a day for DVT prophylaxis. - Internal medicine for perioperative medical management. - Case management consulted for discharge planning. Anticipate discharge to rehab.
[2022-11-21] MEDS ORDERED: FUROSEMIDE 10 MG/ML 2 ML VIAL IV ONE (09:15)
[2022-11-21] MEDS ORDERED: KETOROLAC 15 MG/ML 1 ML VIAL IVP SCH (12:00)
[2022-11-21] MEDS: CHOLECALCIFEROL 25 MCG (1000 IU) TABLET PO SCH (12:26)
[2022-11-21] MEDS ORDERED: ERGOCALCIFEROL 1,250 MCG (50,000 IU) CAPSULE PO SCH (13:00)
--- NOTE | 2022-11-21 13:49 | P.PN ---
Subjective Progress Note Date: 11/21/[address] Grace and her primary care provider 11/19/2022 Patient is seen and evaluated in follow-up this morning who recently had a fall resulting in a left hip femoral neck fracture with displacement and has been admitted to surgery services with medicine on consult. Plan is for surgery sometime today and patient is continued to be nothing by mouth and will continue with pain management per orthopedics. Patient is afebrile with no reports of chest pain or shortness of breath. Lynn ent is reporting hip pain although currently managed and tolerable when not moving. Recommend to continue monitoring blood pressure and postoperatively to monitor for any hypotension. Will will await surgical report along with PT evaluation. 11/20/2022 Patient is evaluated sitting up in the chair. Found to be 83% on room air and has continued to require oxygen. No reports of COPD but noted that patient has been a 1/2 pack per day or more smoker for greater than 50 years. Likely has some underlying chronic respiratory failure and COPD does have history of asthma. Patient will be started on inhalers and likely will require oxygen on discharge. Patient recommended to see residence hall director on discharge for full pulmonary function testing. Counseled extensively on smoking cessation. Reports minimal post surgical pain. 11/21/2022 Patient is evaluated today postoperative day #2 right hip surgical repair. Patient reports pain is managed and improving. Continues to require oxygen via nasal cannula and chest xray shows trace left pleural effusion and patient was given a small dose of IV lasix and to continue on home inhalers. Plan is for rehab tomorrow. Review of systems: Constitutional: No reports of fatigue, fever, or chills Cardiovascular: No reports of chest pain or palpitations Respiratory: No reports of shortness of breath or cough GI: no reports of nausea, no reports of vomiting, no diarrhea : No reports of dysuria or retention Neurovascular: reports of generalized weakness and some left hip pain All medications have been reviewed PHYSICAL EXAMINATION: GENERAL: The patient is alert and oriented x3, thin built, elderly appearing female HEENT: Pupils are round and equally reacting to light. EOMI. no scleral icterus. No conjunctival pallor. Normocephalic, atraumatic. No pharyngeal erythema. No thyromegaly. CARDIOVASCULAR: S1 and S2 muffled PULMONARY: Coarse scattered rhonchi throughout. ABDOMEN: soft. Nontender on exam. non-distended, normoactive bowel sounds. No palpable organomegaly. MUSCULOSKELETAL: No joint swelling or deformity. EXTREMITIES: No cyanosis, clubbing, or pedal edema. Post surgical left hip with dressing intact. NEUROLOGICAL: Gross neurological examination did not reveal any focal deficits. Diffuse weakness SKIN: No rashes. Assessment: Fall with left hip femoral neck fracture with displacement status post surgical repair. Acute hypoxic respiratory failure patient likely has acute COPD exacerbation with underlying COPD. Patient has been a 1/2 pack per day smoker or more for greater than 50 years. History of asthma, not an exacerbation Hypothyroidism history Continued ongoing nicotine dependence Hypertension history GI prophylaxis DVT prophylaxis Full code Plan: Recommend to continue with current medications and management per orthopedic services. Patient to continue with indwelling Merritt catheter for now and would recommend removing postoperatively Patient has been started on smybicort and albuterol and continues to require oxygen via nasal cannula at 2 to 3 L. 83% on room air. Would recommend incentive spirometer and encouraged to use at least 10 times every hour while awake Will await surgical report along with PT/OT therapy evaluation We will continue to follow with orthopedics during hospitalization. Thank you kindly for this consultation. The impression and plan of care has been dictated by Lisa Be Nurse Practitioner as directed. Dr. Alesha MD I have performed a history and physical examination and medical decision making of this patient, discussed the same with the dictator, and agree with the dictators assessment and plan as written, documented as a scribe. Based on total visit time, I have performed more than 50% of this visit. Objective - Vital Signs Vital signs: Vital Signs Temp 98.1 F 11/21/22 07:03 Pulse 71 11/21/22 07:03 Resp 18 11/21/22 07:03 BP 116/78 11/21/22 07:03 Pulse Ox 95 11/21/22 07:51 FiO2 Intake & Output 11/20/22 11/21/22 11/21/22 18:59 06:59 18:59 Intake Total 600 Output Total 1320 Balance -720 Intake: Oral 600 Output: Drainage 20 Left Hip 20 Urine 1300 Uretheral (Merritt) 1300 Other: # Voids 1 3 # Bowel Movements 0 - Labs CBC & Chem 7: 11/20/22 05:54 11/21/22 04:49 Labs: Abnormal Lab Results - Last 24 Hours (Table) 11/20/22 11/21/22 Range/Units 05:54 04:49 Sodium 135 L (137-145) mmol/L Potassium 3.4 L (3.5-5.1) mmol/L Creatinine 0.41 L (0.52-1.04) mg/dL Calcium 7.3 L (8.4-10.2) mg/dL Vitamin D 25-Hydroxy <5.0 L (30.0-100.0) ng/mL Assessment and Plan Time with Patient: Less than 30
[2022-11-21] MEDS ORDERED: KETOROLAC 15 MG/ML 1 ML VIAL IVP PRN (13:55)
[2022-11-21] MEDS ORDERED: SODIUM CHLORIDE 0.9% 1,000 ML IV ONE ×3 (14:00→15:30)
[2022-11-21 14:52] LABS: Basophils % (A) 0 %; Eosinophils # (A) 0.1 k/uL (0-0.7); Eosinophils % (A) 1 %; HCT 27.3 % (34.0-46.0); HGB 9.2 gm/dL (11.4-16.0); Lymphocytes # (A) 0.6 k/uL (1.0-4.8); Lymphocytes % (A) 8 %; MCH 32.2 pg (25.0-35.0); MCHC 33.9 g/dL (31.0-37.0); MCV 95.1 fL (80.0-100.0); Mean Platelet Volume 8.2; Monocytes # (A) 0.5 k/uL (0-1.0); Monocytes % (A) 6 %; Neutrophils # (A) 6.1 k/uL (1.3-7.7); Neutrophils % (A) 84 %; Platelet Count 124 k/uL (150-450); RBC 2.87 m/uL (3.80-5.40); WBC 7.3 k/uL (3.8-10.6)
[2022-11-21] MEDS: SENNOSIDES-DOCUSATE SODIUM 1 EACH TAB PO SCH (20:17)
[2022-11-21] MEDS: ACETAMINOPHEN TAB 325 MG TAB PO PRN (20:19)
[2022-11-21 21:41] LABS: Basophils % (A) 0 %; Eosinophils # (A) 0.1 k/uL (0-0.7); Eosinophils % (A) 1 %; HCT 27.1 % (34.0-46.0); HGB 9.1 gm/dL (11.4-16.0); Lymphocytes # (A) 0.7 k/uL (1.0-4.8); Lymphocytes % (A) 9 %; MCH 31.1 pg (25.0-35.0); MCHC 33.5 g/dL (31.0-37.0); Mean Platelet Volume 8.1; Monocytes # (A) 0.5 k/uL (0-1.0); Monocytes % (A) 7 %; Neutrophils % (A) 81 %; Platelet Count 134 k/uL (150-450); RBC 2.91 m/uL (3.80-5.40); RDW 14.4 % (11.5-15.5); WBC 7.4 k/uL (3.8-10.6)
[2022-11-21] MEDS ORDERED: POTASSIUM CHLORIDE ER 20 MEQ TAB.ER PO STA (21:44)
[2022-11-21] MEDS ORDERED: CALCIUM CARBONATE 500 MG CHEWABLE PO SCH (22:00)
[2022-11-22 07:34] LABS: Basophils % (A) 0 %; Eosinophils # (A) 0.1 k/uL (0-0.7); Eosinophils % (A) 1 %; HCT 29.4 % (34.0-46.0); HGB 9.8 gm/dL (11.4-16.0); Lymphocytes # (A) 0.5 k/uL (1.0-4.8); Lymphocytes % (A) 6 %; MCH 31.3 pg (25.0-35.0); MCHC 33.4 g/dL (31.0-37.0); MCV 93.7 fL (80.0-100.0); Mean Platelet Volume 7.8; Monocytes # (A) 0.5 k/uL (0-1.0); Monocytes % (A) 5 %; Neutrophils # (A) 7.3 k/uL (1.3-7.7); Neutrophils % (A) 86 %; Platelet Count 147 k/uL (150-450); RBC 3.13 m/uL (3.80-5.40); RDW 14.4 % (11.5-15.5); WBC 8.5 k/uL (3.8-10.6)
[2022-11-22 07:52] LABS: African American GFR (CKD) >90 (>60 ml/min/1.73 sqM); Anion Gap 4 mmol/L; Blood Urea Nitrogen 11 mg/dL (7-17); Calcium 7.6 mg/dL (8.4-10.2); Carbon Dioxide 28 mmol/L (22-30); Chloride 103 mmol/L (98-107); Glucose 116 mg/dL (74-99); Non-African American GFR(CKD) >90 (>60 ml/min/1.73 sqM); Potassium 3.8 mmol/L (3.5-5.1); Sodium 135 mmol/L (137-145)
[2022-11-22] MEDS: FAMOTIDINE 20 MG TAB PO SCH (08:11)
[2022-11-22] MEDS: CALCIUM CARBONATE 500 MG CHEWABLE PO SCH ×2 (08:11→20:13)
[2022-11-22] MEDS: ASPIRIN 81 MG PO SCH ×2 (08:11→20:13)
[2022-11-22] MEDS: CHOLECALCIFEROL 25 MCG (1000 IU) TABLET PO SCH (08:11)
[2022-11-22] MEDS: ACETAMINOPHEN TAB 325 MG TAB PO PRN (08:12)
--- NOTE | 2022-11-22 08:30 | P.DS ---
Providers Date of admission: 11/18/22 03:38 Expected date of discharge: 11/22/22 Attending physician: Blaine Rocha Consults: 11/18/22 03:41 Consult Physician Urgent Consulting Provider: Denny Grace Reason/Comments: Surgical clearance Do you want consulting provider notified?: Yes, Notify in am Primary care physician: Denny Grace Hospital Course: This patient is a 72-year-old female who sustained a ground-level fall on 11/18/22. X-rays in the emergency department revealed a left femoral neck fracture. Patient was initially admitted under the care of Dr. Houser for surgical intervention with a consult placed an internal medicine for preoperative medical clearance. Patient underwent a left hip hemiarthroplasty on 11/19/[address] Rocha. The procedure was performed without complication or sequelae. Vital signs and labs are stable on postoperative day #3. Patient is examined bedside this morning. She states the pain in her left hip is well controlled at this time. Patient has worked with physical therapy and subacute rehab is recommended. Patient is tolerating her diet well. No new complaints the day of discharge. On examination, patient is sitting up in bed in no apparent distress. She is alert and answers questions appropriately. On inspection of the left hip, there is a clean, dry, intact surgical dressing in place. No bleeding or drainage through the dressing. Motor and sensory function is intact of the left lower extremity. Femoral nerve function intact. Left lower extremity warm and well perfused. Calf is nontender. Patient is discharged to rehab today, pending medical clearance. Please see med rec for accurate list of discharge medications. Patient Condition at Discharge: Serious Plan - Discharge Summary Discharge Rx Participant: No New Discharge Prescriptions: New HYDROcodone/APAP 5-325MG [Durant 5-325] 1 - 2 tab PO Q6HR PRN 7 Days #30 tab PRN Reason: Pain Aspirin 81 mg PO BID 30 Days #60 tab Docusate [Colace] 100 mg PO BID #60 capsule Discharge Medication List Aspirin 81 mg PO BID 30 Days #60 tab 11/22/22 [Rx] Docusate [Colace] 100 mg PO BID #60 capsule 11/22/22 [Rx] HYDROcodone/APAP 5-325MG [Durant 5-325] 1 - 2 tab PO Q6HR PRN 7 Days #30 tab 11/22/22 [Rx] Follow up Appointment(s)/Referral(s): Denny Grace MD [Primary Care Provider] - 1 Week [facility], [NON-STAFF] - 1-2 Days ([facility] will call you to schedule your in home nursing, physical therapy, and occupational therapy visits. ) Blaine Rocha MD [Medical Doctor] - 2 Weeks Activity/Diet/Wound Care/Special Instructions: Weight bear to tolerance on operative extremity with a walker. Up with assistance. Keep operative dressing in place until follow-up in the office. Call the office if dressing becomes saturated or falls off. May shower over dressing. Take pain medications as needed. Take aspirin 81mg twice a day x 4 weeks for blood clot prevention. Follow-up at [facility] two weeks post-op. Call the office with any questions or concerns, Patient needs a commode chair because she is room confined due to a left hip fracture. Discharge Disposition: HOME WITH HOME HEALTH SERVICES
[2022-11-22] MEDS: ALBUTEROL HFA INHALER INHALATION SCH ×4 (09:15→21:06)
[2022-11-22] MEDS: SYMBICORT 80-4.5 MCG INHALER INHALATION SCH ×2 (09:15→21:06)
[2022-11-22] MEDS: HYDROcodone/APAP 5-325MG 1 EACH TAB PO PRN ×2 (12:56→20:12)
[2022-11-22] MEDS: SENNOSIDES-DOCUSATE SODIUM 1 EACH TAB PO SCH (20:12)
[2022-11-23] MEDS: HYDROcodone/APAP 5-325MG 1 EACH TAB PO PRN ×2 (02:18→08:09)
[2022-11-23 08:08] VITALS: BP 161/88; PULSE 62; RESP 16; TEMP 98
[2022-11-23] MEDS: CHOLECALCIFEROL 25 MCG (1000 IU) TABLET PO SCH (08:09)
[2022-11-23] MEDS: CALCIUM CARBONATE 500 MG CHEWABLE PO SCH (08:09)
[2022-11-23] MEDS: ASPIRIN 81 MG PO SCH (08:09)
[2022-11-23] MEDS: FAMOTIDINE 20 MG TAB PO SCH (08:09)
[2022-11-23] MEDS: ALBUTEROL HFA INHALER INHALATION SCH ×2 (08:22→11:21)
[2022-11-23] MEDS: SYMBICORT 80-4.5 MCG INHALER INHALATION SCH (08:22)
--- NOTE | 2022-11-23 11:37 | P.PN ---
Subjective Progress Note Date: 11/23/22 Today is postoperative day #4. The patient is status post left hip hemiarthroplasty on 11/19/22. Patient is examined bedside this morning with Dr. Rocha. Patient is up to the bedside chair. She is overall doing well and pain is well controlled. Auth has been approved for rehab and discharge is planned for today. Objective - Vital Signs Vital signs: Vital Signs Temp 98.0 F 11/23/22 08:07 Pulse 62 11/23/22 08:07 Resp 16 11/23/22 08:07 BP 161/88 11/23/22 08:07 Pulse Ox 93 L 11/23/22 08:24 FiO2 Intake & Output 11/22/22 11/23/22 11/23/22 18:59 06:59 18:59 Intake Total 180 Balance 180 Intake: Oral 180 Other: Voiding Method Toilet Toilet # Voids 2 1 - Exam On examination, the patient is sitting up in the bedside chair in no apparent distress. She is alert and oriented 3. On inspection of her left hip, there is a clean, dry, intact surgical dressing in place. No bleeding or drainage to the dressing. Motor and sensory function intact LLE. LLE warm and well perfused. Calf nontender. - Labs CBC & Chem 7: 11/22/22 06:46 11/22/22 06:46 Assessment and Plan Assessment: Status-post left hip hemiarthroplasty on 11/19/22. Postoperative day #4. Plan: - Patient will discharge to rehab today. She may continue to WBAT on operative extremity with a walker, fall precautions. Patient should keep operative dressing in place until follow-up in the office. Continue aspirin 81mg BID x 4 weeks for DVT prophylaxis.
== END 2022-11-23 11:23 | disposition home health service (06) | DRG 521 ==
LOC: EC 00:58 → 4SSUR 03:38
PROVIDERS: ADMIT Orthopaedic Surgery; ATTEND Orthopaedic Surgery
PROC: 0SRS0J9 Replacement of Left Hip Joint, Femoral Surface with Synthetic Substitute, Cemented, Open Approach (ICD-10-PCS; principal; 2022-11-19 11:50)
DX: S72.012A Unspecified intracapsular fracture of left femur, initial encounter for closed fracture (principal); J96.21 Acute and chronic respiratory failure with hypoxia; J44.1 Chronic obstructive pulmonary disease with (acute) exacerbation; R54 Age-related physical debility; E03.9 Hypothyroidism, unspecified; I10 Essential (primary) hypertension; F17.210 Nicotine dependence, cigarettes, uncomplicated; M85.80 Other specified disorders of bone density and structure, unspecified site; W01.0XXA Fall on same level from slipping, tripping and stumbling without subsequent striking against object, initial encounter; Y92.009 Unspecified place in unspecified non-institutional (private) residence as the place of occurrence of the external cause
CPT/HCPCS: 70450; 71045; 71046; 72125; 73501; 73502; 80048; 80053; 82306; 83735; 85025; 85610; 85730; 93005; 94640; 94760; 96361; 96372; 96374; 96375; 99285